=== PATIENT | female | born 1945 | race Two or more races ===

== ENCOUNTER 2020-11-03 15:49 | Outpatient (CLI) | payer MEDICARE, OTHER | END 2020-11-03 23:59 | disposition home or self-care (01) | LOC: MSC 15:49 | PROVIDERS: ATTEND Internal Medicine | DX: E11.22 Type 2 diabetes mellitus with diabetic chronic kidney disease (principal); I12.9 Hypertensive chronic kidney disease with stage 1 through stage 4 chronic kidney disease, or unspecified chronic kidney disease; N18.4 Chronic kidney disease, stage 4 (severe); R80.9 Proteinuria, unspecified; E66.9 Obesity, unspecified; Z68.39 Body mass index [BMI] 39.0-39.9, adult; E79.0 Hyperuricemia without signs of inflammatory arthritis and tophaceous disease ==